=== PATIENT | female | born 1950 | race Caucasian/White ===

== ENCOUNTER 2016-10-25 08:45 | Day surgery (SDC) | payer MEDICARE, MEDICAID ==
[~2016-10-25 08:45] MED LIST: DULO60CA42 PO; LORA0.5T PO; OMEP20CA11 PO; OXYB15TA PO; PRAZ1CAP2 PO; ZIPR60CA18 PO
[2016-10-25] MEDS ORDERED: MethylprednisoLONE Depot 80 mg/mL Inj ONE (08:46)
[2016-10-25] MEDS ORDERED: Bupivacaine-MPF 0.25% 30 mL Inj ONE (08:46)
[2016-10-25 10:08] VITALS: BP 142/84; PULSE 89; RESP 20; O2SAT 95
[2016-10-25] MEDS ORDERED: GABA-502 PO (10:14)
[2016-10-25] MEDS ORDERED: LEVO75TA4 PO (10:14)
--- NOTE | 2016-10-25 16:34 | PCM.PROC ---
Procedure Note Date of Service: Oct 25, 2016 Pre Procedure Diagnosis: PROCEDURE: LEFT Ultrasound-guided trochanteric bursa injection PRE-PROCEDURE DIAGNOSIS: Trochanteric bursitis POST-PROCEDURE DIAGNOSIS: same INDICATION: 66-year-old female with lateral hip pain consistent with trochanteric bursitis PERFORMED BY: Bulmaro Borja MD DESCRIPTION OF PROCEDURE: Patient was met in the holding area. Consent was signed, site was confirmed and all questions were answered. Patient was taken to the procedure suite and placed in the contra-lateral decubitus position on the procedure table. Area was prepped and draped in sterile fashion. Local anesthesia with 1% lidocaine was injected into the skin and subcutaneous tissues. The trochanteric bursa was identified by US and a 3-inch 22-gauge Quincke spinal needle was advanced under direct ultrasound visualization to the trochanteric bursa. After negative aspiration, 40 mg of Depo-Medrol mixed with 2 cc of 0.25% bupivacaine was injected without incident. Patient tolerated the procedure well ANESTHESIA: Local. EBL: None. No Blood Products Used COMPLICATIONS: None SPECIMENS: None POST-PROCEDURE DISPOSITION: Patient was returned to the holding area in stable condition. They were discharged home when all discharge criteria were met. DISCHARGE MEDICATIONS: FOLLOW UP: Continue conservative therapy, PT Keep scheduled followup Bulmaro Borja MD * Pain Management * Anesthesiology Bulmaro Borja MD Oct 25, 2016 16:34
== END 2016-10-25 23:59 | disposition home or self-care (01) ==
LOC: END 08:45
PROVIDERS: ATTEND Anesthesiology Pain Medicine
DX: M70.62 Trochanteric bursitis, left hip (principal); F43.10 Post-traumatic stress disorder, unspecified; N39.46 Mixed incontinence; K11.7 Disturbances of salivary secretion
CPT/HCPCS: 20610; J1040